=== PATIENT | female | born 1990 | race Two or more races ===

== ENCOUNTER 2024-11-09 12:51 | Outpatient (RCR) | payer MEDICAID, SELFPAY ==
--- NOTE | 2024-09-28 14:07 | XR_ITS ---
Examination: Biophysical profile, ultrasound Date and time of exam: September 28, 2024 1442 hours INDICATIONS: NST, labor evaluation today Technique: Multiple transabdominal sonographic images of the pelvis abdomen obtained. Attention is directed to the breathing movement, gross body movement, amniotic fluid volume and tone. Findings: Amniotic fluid index 14.2 cm Total biophysical profile is 8 of 8. breathing movement is 2. Gross body movement is 2. tone is 2. Qualitative amniotic fluid volume is 2 Impression: Biophysical profile is 8 of 8.
[2024-09-28 15:24] VITALS: BP 128/62; PULSE 84; RESP 16; TEMP 36.6
--- NOTE | 2024-10-05 13:24 | XR_ITS ---
Examination: Biophysical profile, ultrasound Date and time of exam: October 05, 2024 1350 hours INDICATIONS: Maternal obesity Technique: Multiple transabdominal sonographic images of the pelvis abdomen obtained. Attention is directed to the breathing movement, gross body movement, amniotic fluid volume and tone. Findings: Amniotic fluid index 13.5 cm Total biophysical profile is 8 of 8. breathing movement is 2. Gross body movement is 2. tone is 2. Qualitative amniotic fluid volume is 2 Impression: Biophysical profile is 8 of 8.
[2024-10-05 14:26] VITALS: BP 125/62; PULSE 78; RESP 16; TEMP 36.7
--- NOTE | 2024-10-18 13:05 | XR_ITS ---
Examination: Biophysical profile, ultrasound Date and time of exam: October 18, 2024 1308 hrs. Indications: Onset pelvic pain today Technique: Multiple transabdominal sonographic images of the pelvis abdomen obtained. Attention is directed to the breathing movement, gross body movement, amniotic fluid volume and tone. Findings: Amniotic fluid index 7.0 cm Total biophysical profile is 8 of 8. breathing movement is 2. Gross body movement is 2. tone is 2. Qualitative amniotic fluid volume is 2 Impression: Biophysical profile is 8 of 8.
[2024-10-18 13:30] VITALS: BP 118/63; PULSE 78; RESP 18; TEMP 36.8
--- NOTE | 2024-10-26 13:07 | XR_ITS ---
Examination: Biophysical profile, ultrasound Date and time of exam: October 26, 2024 1307 hours INDICATIONS: Pelvic pain today Technique: Multiple transabdominal sonographic images of the pelvis abdomen obtained. Attention is directed to the breathing movement, gross body movement, amniotic fluid volume and tone. Findings: Amniotic fluid index 8.9 cm Total biophysical profile is 8 of 8. breathing movement is 2. Gross body movement is 2. tone is 2. Qualitative amniotic fluid volume is 2 Impression: Biophysical profile is 8 of 8.
[2024-10-26 13:36] VITALS: BP 133/74; PULSE 87; RESP 16; TEMP 36.6
--- NOTE | 2024-11-02 14:34 | XR_ITS ---
Examination: Biophysical profile, ultrasound Date and time of exam: November 02, 2024 1443 hours INDICATIONS: Diagnosis elevated BMI, small for gestational age, pelvic pain beginning one day ago Technique: Multiple transabdominal sonographic images of the pelvis abdomen obtained. Attention is directed to the breathing movement, gross body movement, amniotic fluid volume and tone. Findings: Amniotic fluid index 14.4 cm Total biophysical profile is 8 of 8. breathing movement is 2. Gross body movement is 2. tone is 2. Qualitative amniotic fluid volume is 2 Impression: Biophysical profile is 8 of 8.
[2024-11-02 15:04] VITALS: BP 135/78; PULSE 81; RESP 18; TEMP 36.8
--- NOTE | 2024-11-09 12:57 | XR_ITS ---
Examination: Biophysical profile, ultrasound Date and time of exam: November 09, 2024 1309 hours INDICATIONS: Diagnosis maternal obesity, diagnosis small for gestational age, diagnosis pelvic pain beginning November 01, 2024 Technique: Multiple transabdominal sonographic images of the pelvis abdomen obtained. Attention is directed to the breathing movement, gross body movement, amniotic fluid volume and tone. Findings: Amniotic fluid index 8.5 cm Total biophysical profile is 8 of 8. breathing movement is 2. Gross body movement is 2. tone is 2. Qualitative amniotic fluid volume is 2 Impression: Biophysical profile is 8 of 8.
[2024-11-09 14:26] VITALS: BP 151/68; PULSE 75; RESP 18; TEMP 36.7
[2024-11-09 15:33] LABS: Basophils % (Auto) 0 % (0-2.5); Eosinophils # (Auto) 0.1 Thou/mm3 (0.0-0.5); Eosinophils % (Auto) 1 % (0-10); Hematocrit 34.1 % (36.0-46.0); Hemoglobin 11.8 g/dL (12.0-16.0); Immature Granulocytes % (Auto) 1 % (0-0); Immature Granulocytes Auto 0.04 Thou/mm3 (0.00-0.00); Lymphocytes # (Auto) 2.1 Thou/mm3 (1.0-4.8); Lymphocytes % (Auto) 24 % (10-50); Mean Corpuscular HGB Conc 34.6 g/dl (31.0-37.0); Mean Corpuscular Hemoglobin 30.3 pg (25.0-35.0); Mean Corpuscular Volume 88 fL (80-100); Monocytes # (Auto) 0.6 Thou/mm3 (0.0-0.8); Monocytes % (Auto) 7 % (0-12); Neutrophils % (Auto) 68 % (37-80); Nucleated Red Blood Cell % 0 /100 WBC (0); Platelet Count 199 Thou/mm3 (140-440); RDW Standard Deviation 41.9 fL (36.4-46.3); Red Blood Count 3.89 Miln/mm3 (4.00-5.20); White Blood Count 8.8 Thou/mm3 (3.6-11.0)
[2024-11-09 15:48] LABS: Creatinine,Random Urine 108 mg/dL (30-125); Protein Total, Random Urine 20 mg/dL (1-14)
[2024-11-09 15:58] LABS: Alanine Aminotransferase 18 U/L (10-49); Albumin, Serum 3.7 gm/dL (3.5-5.0); Albumin/Globulin Ratio 1.4 (1.2-2.2); Alkaline Phosphatase 224 U/L (46-116); Anion Gap 9 (7-16); Aspartate Amino Transferase 28 U/L (0-34); BUN/Creatinine Ratio 17 Ratio (12-20); Bilirubin,Total 0.3 mg/dL (0.3-1.2); Blood Urea Nitrogen 10 mg/dL (9-23); Calcium 8.8 mg/dL (8.3-10.6); Carbon Dioxide 22.9 mMol/L (20.0-31.0); Chloride 106 mMol/L (98-107); Creatinine (Component) 0.6 mg/dL (0.6-1.3); Globulin 2.7 gm/dL (2.3-3.5); Glucose 85 mg/dL (74-106); Osmolality,Calculated 273 (275-295); Potassium 3.7 mMol/L (3.4-5.1); Sodium 138 mMol/L (136-145); Total Protein 6.4 gm/dL (5.7-8.2); eGFR > 60 See Note
== END 2024-11-09 23:59 | disposition home or self-care (01) ==
LOC: S4S1 12:51
PROVIDERS: Obstetrics & Gynecology; PCP Advanced Practice Midwife; Referring Provider Advanced Practice Midwife; Visit Provider Advanced Practice Midwife
DX: O99.213 Obesity complicating pregnancy, third trimester (principal); E66.9 Obesity, unspecified; O09.93 Supervision of high risk pregnancy, unspecified, third trimester; Z3A.39 39 weeks gestation of pregnancy
CPT/HCPCS: 36415; 59025; 76819; 80053; 82570; 84156; 85025

== ENCOUNTER 2024-11-09 16:49 | Inpatient (IN) | payer MEDICAID, SELFPAY ==
[2024-11-09] VITALS (10 sets, daily range): BP systolic 123–153; BP diastolic 57–90; PULSE 73–96; RESP 16–18; TEMP 36.8–36.9; BMI 48.9
--- NOTE | 2024-11-09 18:35 | ESHP_ITS ---
Documentation for date of: 11/09/24 OB Labor/Induct. HPI History of Present Illness : 4 Para: 3 Term pregnancies: 2 pregnancies: 1 Living children: 2 History of Abortions: Spontaneous and Elective: 0 History of Vaginal deliveries: 3 History of sections: No History of : No Date of last menstrual period: 02/05/25 MANNIE: 11/12/24 Gestational Age (weeks): 39 Gestational Age (days): 4 Gestational age based on last menstrual period: -12 Indication for induction: medical complication History of present illness: Aubree is a 33yo with SIUP at 39w4d presenting for routine monitoring for obesity in (starting BMI 49). In triage she had recurrent mild range (rare severe range) bp's. PIH workup negative for pre-eclampsia, however elevated bp's remain and thus IOL is warranted. No hx of elevated bp's in this prior to today. She does have hx of PIH in her first for which she had IOL. No LOF, vaginal bleeding or regular/painful ctx. She feels good movement. She denies RODRIGUEZ/vision changes/RUQ pain. History of Present Adequate Care: Yes Ultrasounds: abnormal US findings Abnormal ultrasound findings: Earlier in she was found to have SGA, but MFM follow-up after showed normal growth and MFM stated no further monitoring was needed for this issue. Narrative: G1: 36wk 6lb8oz, IOL for PIH G2: 40wk 9lb5oz, retained placenta G3: 40wk 8b8oz, shortened cervix during , brief shoulder dystocia at time of delivery with no sequelae for patient or infant G4: current Labs Labs: Negative: Hepatitis B, HIV, Chlamydia and Gonorrhea and Unknown: Group Beta Strep Review of Systems Review of Systems Systems Reviewed: All systems reviewed, normal except as documented Constitutional Constitutional: Denies body ache(s), Denies chills, Denies fever(s) and Denies headache(s) ENT Ears, Nose, Mouth, and Throat: Denies headache(s) and Denies vertigo Cardiovascular Cardiovascular: Denies chest pain, Denies dyspnea and Denies syncope Respiratory Respiratory: Denies dyspnea Gastrointestinal Gastrointestinal: Denies nausea and Denies vomiting Neurologic Neurologic: Denies convulsions, Denies headache(s), Denies other visual disturbances, Denies syncope and Denies vertigo Past Medical History Family History OTHER FAMILY HX: non-contributory Surgical History SURGICAL: Negative Section Social History SOCIAL: No ETOH during . No illicit drug use or tobacco. Past Medical History Comments PMH COMMENT: Obesity (starting BMI 49) Elevated 1hr glucola, normal 3hr GTT (early HgbA1c 5.2) Meds Home Medications and Allergies Home Medications ?Medication ?Instructions ?Recorded ?Confirmed ?Type aspirin 81 mg chewable tablet 11/09/24 History vits no.130-ferrous fum tab 11/09/24 11/09/24 History 27 mg iron-folic acid 800 mcg tablet ( Vitamin) Allergies Allergy/AdvReac Type Severity Reaction Status Date / Time No Known Allergies Allergy Unknown Verified 11/09/24 18:34 OB Exam Physical Exam Narrative: General: well developed, well nourished, no acute distress, conversant Cardiac: normal heart rate Lungs: breathing without distress Abdomen: soft, gravid, non-tender, no rebound or guarding Extremities: no pain with palpation of calves Detailed Labor and Delivery Exam Dilation (cm): 1 Effacement (%): 0 station: -4 Consistency: medium Presentation: Vertex Membranes: intact monitor accelerations: 15x15 monitor decelerations: None buttermaker continuous churn variability: Moderate (11-25) Contraction frequency (min): irregular OB Results Labs Labs: Hgb 11.8 Platelets 199 serum creatinine 0.6 AST/ALT normal Urine prot:creat 0.185 OB Assessment & Plan Assessment and Plan (1) Gestational hypertension: Status: Acute Assessment and plan: Aubree is a 33yo with SIUP at 39w4d with new diagnosis of gestational hypertension. Mild range with rare severe range bp's. No sx of pre-E and PIH labs are wnl, including urine p:c. SCE: 1/thick/-4, benign exam. Reassuring assessment. care: Good care with [facility] Complications: Obesity (starting BMI 49), SGA that resolved, elevated 1hr glucola with normal 3hr GTT, Hx of PIH in 1st . Brief shoulder dystocia at time of 3rd delivery with no sequelae for patient or - that infant was 8lb8oz and she is proven to 9lb5oz. EFW by James for current gestation is 8lb0z. Plan: -Admit to L&D -Establish IV, routine labs -CEFM -Regular diet [id number], then clear liquid diet in labor -Counseled/consented re: iol and . Pharmacy states 25mcg cytotec dosing not available to administer vaginally, so will initiate cytotec 50mcg PO q4hr. In addition, sandoval cervical balloon. -GBS unknown. Since >37 weeks with no hx of GBS-related disease, no need for ppx by current ACOG guidelines -Anticipate -Safe to proceed Gayatri Kilpatrick MD (2) Obesity compl pregn//puerperp: Status: Acute (1) Gestational hypertension Qualifiers: Trimester: third trimester Qualified Code(s): O13.3 - Gestational [- induced] hypertension without significant proteinuria, third trimester
--- NOTE | 2024-11-09 19:17 | ESPR_ITS ---
Documentation for date of: 11/09/24 OB Labor Progress Note Pelvic Exam Dilation (cm): 1 Effacement (%): 0 station: -4 Contractions Contraction frequency: irregular Assessment and Plan Comments: Sandoval balloon placement note. Patient comfortable. Cat I FHRT with irregular ctx SCE: 1/thick/-4 Cook sandoval balloon placed easily, stilette removed and 40cc NS filled the intra- uterine balloon. Patient tolerated procedure well. Will proceed with cytotec 50mcg PO q4hr. Will await sandoval balloon falling out Regular dinner then [id number] CEFM Safe to proceed Gayatri Kilpatrick MD
[2024-11-09] MEDS: MISOPROSTOL 50 mCg TABLET PO ×2 (19:31→23:55)
[2024-11-09] MEDS: RINGERS LACTATED 1000 ML 1,000 ML 100 ML IV (21:50)
[2024-11-09] MEDS: Ampicillin Inj 2,000 MG in SODIUM CHLORIDE 0.9% (P) 100 ML 200 MG IV (21:52)
[2024-11-09 23:30] LABS: Syphilis Nonreactive (Nonreactive)
[2024-11-10] VITALS (38 sets, daily range): BP systolic 115–178; BP diastolic 53–102; PULSE 64–105; RESP 15–20; TEMP 36.8–36.9; O2SAT 97–98; BMI 48.9
[2024-11-10] MEDS: Ampicillin Inj 1,000 MG in SODIUM CHLORIDE 0.9% (P) 50 ML 50 MG IV ×3 (01:58→10:02)
[2024-11-10] MEDS: MISOPROSTOL 50 mCg TABLET PO ×2 (03:55→08:04)
[2024-11-10] MEDS: fentaNYL CIT INJ 50 mCg/ML AMP 2ML 100 MCG IV ×2 (08:04→10:26)
--- NOTE | 2024-11-10 08:27 | PD.LDPN ---
Documentation for date of: 11/10/24 OB Labor Progress Note Pelvic Exam Dilation (cm): 1 Effacement (%): 0 station: -4 Contractions Contraction frequency: irregular Assessment and Plan Comments: Intrapartum Note Patient doing well, feeling ctx more strongly now but declines epidural. Interested in IV pain medication. Has received 3 doses of PO cytotec. No headache, vision changes or RUQ pain. Normotensive to mild range bp's this morning. afebrile. There were 3 consecutive severe range bp's earlier this morning that MD was not notified of. Cat I FHRT overall Ctx q3-5 min SCE: 50/-4, this is a good amount of change from the very thick cervix starting IOL last night Plan: -Continue cytotec 50mcg PO Q4hr -Clear liquid diet after breakfast -CEFM -IV fentanyl per protocol prn pain -Requested that RN call me for any severe range bp's that reoccur after 20 minutes -Safe to proceed Gayatri Kilpatrick MD
[2024-11-10] MEDS: RINGERS LACTATED 1000 ML 1,000 ML 100 ML IV (10:05)
[2024-11-10] MEDS: MINERAL OIL 30 ML UDC TOP (10:14)
[2024-11-10] MEDS: OXYTOCIN in NS 20 units 20 UNIT/1,000 ML BAG 125 UNIT IV (10:26)
[2024-11-10] MEDS: TRANEXAMIC ACID 1,000 MG IVPB 1,000 MG/100 ML BAG 200 MG IV (10:31)
[2024-11-10] MEDS: BENZO/LANO/ALOE (Dermoplast) 60 GM CAN 1 SPRAY TOP (10:31)
[2024-11-10] MEDS: MISOPROSTOL 200 mCg TABLET 800 MCG PR (10:32)
[2024-11-10] MEDS: IBUPROFEN TAB 400 MG TABLET 800 MG PO ×2 (10:41→21:44)
--- NOTE | 2024-11-10 10:46 | OBDSUM_ITS ---
Vacuum Assisted Delivery Additional Comments Additional comments: Aubree is a 33yo [id number] s/p at 39w5d after undergoing IOL for gestational hypertension, delivering at 1016 on 11/10/2024. She had sandoval cervical balloon placed and received PO cytotec for induction. Induction course was uneventful until she rapidly progressed from 4 to 8cm at which point more than the usual amount of bloody show was noted (soaked onto a chucks pad). She then rapidly progressed again to C/C/0 at which point she began pushing. With good maternal pushing efforts, 's head delivered OA and restituted SEA. Left anterior shoulder delivered easily followed by posterior shoulder and corpus. had spontaneous cry and was vigorous. Apgars 9/9. There was a short cord, so infant was supported by maternal perineum while infant's nose/mouth were suctioned and infant dried/stimulated. After approximately 20-30 seconds, cord was clamped x2 and cut by Dr. Kilpatrick. At that point, was then placed to maternal chest. Cord blood collected for typing. At that point, I noted a profuse stream of vaginal bleeding that was coming from the uterus. I asked for patient to receive fentanyl 100mcg IV x1 and I performed manual extraction of the placenta to address the heavy bleeding. I was able to get a good plane between placenta and uterus, and the placenta was brought out intact with all cotyledons present. Large dark clot adhered to the periphery of the placenta consistent with partial placental abruption. Once the placenta was removed and bimanual massage was performed while IV pitocin was infusing per protocol, the fundus then firm to u-2cm, the lower uterine segment firmed and hemostasis was then fully achieved. A sweep just inside of the lower uterine segment revealed no placental fragments retained. Inspection of perineum and vagina revealed no lacerations. Patient to receive TXA 1g IV x1 (RN was waiting until IV pitocin finished infusing). I placed cytotec 800mcg OR and noted no further uterine bleeding. All counts correct x2. Mom and were doing well when I left the room. Gayatri Kilpatrick MD Data ([facility]) Data Hx Section: No : 4 Para: 3 Term: 2 : 1 Livin : 0 Delivery Data ([facility]) Labor Data ROM Date: 11/10/24 ROM Time: 10:01 Rupture Type: SROM Amniotic Fluid: Clear Delivery Data Labor Onset Stage 1 Date: 11/10/24 Labor Onset Stage 1 Time: 07:36 Labor Onset Stage 2 Date: 11/10/24 Labor Onset Stage 2 Time: 10:15 Delivery Date: 11/10/24 Delivery Time: 10:16 Placenta Delivery Date: 11/10/24 Placenta Delivery Time: 10:26 Delivered by: Gayatri Kilpatrick Delivery nurse: Magda Sal Other staff at delivery: Nursery Nurse Other staff at delivery: [facility] Nurse Other staff at delivery: Nurse Other staff at delivery: Isabella Toro Other staff at delivery: Lashawn Gallegos Other staff at delivery: Mirta hein Delivery Method Delivery: Vaginal Delivery Type: Spontaneous Anesthesia Type Primary Anesthesia: None EBL Estimated blood loss (ml): 500 Complications Complications: Hemorrhage related to partial placental abruption [facility] ([facility]) [facility] Gender: Female Infant Weight Grams: 3710 1 Minute Total: 9 5 Minute Total: 9
[2024-11-10] MEDS: DOCUSATE SOD 100 MG CAPSULE PO (21:44)
[2024-11-11] VITALS: BP 137/83; PULSE 74; RESP 19; TEMP 36.6; O2SAT 97
[2024-11-11 04:00] VITALS: BP 137/83; PULSE 85; RESP 20; TEMP 36.6; O2SAT 97
[2024-11-11 06:18] LABS: Basophils % (Auto) 0 % (0-2.5); Eosinophils # (Auto) 0.1 Thou/mm3 (0.0-0.5); Eosinophils % (Auto) 1 % (0-10); Hemoglobin 10.1 g/dL (12.0-16.0); Immature Granulocytes % (Auto) 0 % (0-0); Immature Granulocytes Auto 0.02 Thou/mm3 (0.00-0.00); Lymphocytes # (Auto) 2.5 Thou/mm3 (1.0-4.8); Lymphocytes % (Auto) 28 % (10-50); Mean Corpuscular HGB Conc 34.8 g/dl (31.0-37.0); Mean Corpuscular Hemoglobin 30.7 pg (25.0-35.0); Mean Corpuscular Volume 88 fL (80-100); Monocytes # (Auto) 0.5 Thou/mm3 (0.0-0.8); Monocytes % (Auto) 6 % (0-12); Neutrophils # (Auto) 5.8 Thou/mm3 (1.8-7.7); Neutrophils % (Auto) 66 % (37-80); Nucleated Red Blood Cell % 0 /100 WBC (0); Platelet Count 174 Thou/mm3 (140-440); RDW Standard Deviation 43.2 fL (36.4-46.3); Red Blood Count 3.29 Miln/mm3 (4.00-5.20); White Blood Count 8.9 Thou/mm3 (3.6-11.0)
[2024-11-11] MEDS: IBUPROFEN TAB 400 MG TABLET 800 MG PO (06:26)
[2024-11-11] MEDS: DOCUSATE SOD 100 MG CAPSULE PO (08:24)
[2024-11-11 08:30] VITALS: BP 119/75; PULSE 77; RESP 18; TEMP 36.6; O2SAT 99
--- NOTE | 2024-11-11 09:52 | ESDS_ITS ---
DS: Providers Provider Date of admission: 11/09/24 16:49 Primary care physician: Jon Arshad MD Admitting Provider: Gayatri Kilpatrick MD Attending Provider on Admission: Gayatri Kilpatrick MD Attending Provider on DC: Gayatri Kilpatrick MD Discharging Provider: Gayatri Kilpatrick MD DS: Diagnosis Discharge Diagnosis (1) Gestational hypertension: Status: Acute (2) Obesity compl pregn//puerperp: Status: Acute (3) hemorrhage: Status: Acute Assessment & Plan: Hgb 10.1, Rx iron (4) Placental abruption affecting delivery: Status: Acute Problem List Completed Was Problem List Reviewed/Reconciled?: Yes Summary/Hosp Course Brief History: Aubree is a 33yo with SIUP at 39w4d presenting for routine monitoring for obesity in (starting BMI 49). In triage she had recurrent mild range (rare severe range) bp's. PIH workup negative for pre-eclampsia, however elevated bp's remain and thus IOL is warranted. No hx of elevated bp's in this prior to today. She does have hx of PIH in her first for which she had IOL. No LOF, vaginal bleeding or regular/painful ctx. She feels good movement. She denies RODRIGUEZ/vision changes/RUQ pain. She is doing well on PPD1 s/p , delivering at 1016 on 11/10/2024. Delivery was complicated by PPH (EBL 500ml) related to partial placental abruption that was fully treated with manual removal of placenta. She has had an uncomplicated course, meeting all milestones and feels ready for discharge home. She is ambulating without lightheadedness, tolerating regular diet no n/v, spontaneously voiding without issue. She has no chest pain or shortness of breath. No fevers or chills. Minimal, appropriate discomfort. Vitals normal, benign exam. Hemodymanically stable with no evidence of infection. PP Hgb 10.1. Asymptomatic anemia. Status at Discharge Functional status at discharge: independent ambulation Overall status at discharge: patient is back to baseline Time Spent with Patient Time attestation: Total time spent providing and/or coordinating discharge services: Time spent: Less than 30 minutes Exam Vital Signs Temp Pulse Resp BP Pulse Ox O2 Del Method 97.9 F 77 18 119/75 99 Room Air 11/11/24 08:30 11/11/24 08:30 11/11/24 08:30 11/11/24 08:30 11/11/24 08:30 11/11/24 08:30 Narrative Exam General: well developed, well nourished, no acute distress, conversant Cardiac: normal heart rate Lungs: breathing without distress Abdomen: soft, post-gravid, non-tender, no rebound or guarding. Fundus firm at u-2cm. Extremities: no pain with palpation of calves, trace BLE edema Discharge Plan Plan Patient Disposition: HOME (Self Care) Patient condition on transfer: Stable Prescriptions/Referrals Prescriptions/Med Rec: New docusate sodium 100 mg Capsule 100 mg PO BID 15 Days Qty: 30 0RF ibuprofen 800 mg tablet 800 mg PO Q8H PRN (Reason: See Comments) 10 Days Qty: 30 0RF ferrous sulfate 325 mg (65 mg iron) tablet 325 mg PO QDAY Qty: 30 0RF Continued Vitamin 27 mg iron- 800 mcg tablet Patient Comments: take 1 tablet by mouth once daily lanolin 50 % ointment 1 applic topical TID PRN (Reason: skin irritation) 60 Days Qty: 15 0RF Discontinued docusate sodium [Colace] 100 mg capsule 100 mg PO BID Qty: 60 0RF ibuprofen 600 mg tablet 600 mg PO Q6H PRN (Reason: pain) Qty: 90 0RF aspirin 81 mg tablet,chewable Patient Comments: chew and swallow 1 tablet by mouth once daily Referrals: Jon Arshad MD [Primary Care Provider] - Patient/Caregiver Discharge Instructions Discharge Activity: activity as tolerated Other Discharge Activity Instructions:: Vaginal rest and no heavy lifting for 6 weeks. No bathing, only showers for 6 weeks. Other Discharge Diet Instructions: Regular Education Materials: After a Vaginal , After Delivery Concerns, Breast Care After Print Language: Korean Activity Restrictions/Additional Instructions: Follow up with OBGYN or CNM in 4-6 weeks, call clinic for appointment Stand Alone Forms: Pilar Award Info., Patient Portal Info Letter Discharge Order Discharge Orders: Discharge (Routine); Ordered 11/11/24 Ordered By: Gayatri Kilpatrick Planned Discharge Date 11/11/24 (1) Gestational hypertension Qualifiers: Trimester: third trimester Qualified Code(s): O13.3 - Gestational [- induced] hypertension without significant proteinuria, third trimester (3) hemorrhage Qualifiers: hemorrhage type: other immediate Qualified Code(s): O72.1 - Other immediate hemorrhage
[2024-11-11 11:12] VITALS: BP 135/87; PULSE 76; RESP 18; TEMP 36.6; O2SAT 97
== END 2024-11-11 14:50 | disposition home or self-care (01) | DRG 560 ==
LOC: S4SX 11-10 11:08 → S4NX 11-10 12:23
PROVIDERS: Admitting Provider Obstetrics & Gynecology; PCP Family Medicine; Visit Provider Obstetrics & Gynecology
DX: O13.4 Gestational [pregnancy-induced] hypertension without significant proteinuria, complicating childbirth (principal); O69.3XX0 Labor and delivery complicated by short cord, not applicable or unspecified; O45.93 Premature separation of placenta, unspecified, third trimester; O72.1 Other immediate postpartum hemorrhage; O99.214 Obesity complicating childbirth; Z37.0 Single live birth; Z3A.39 39 weeks gestation of pregnancy
CPT/HCPCS: 36415; 59409; 85025; 86780; 86850; 86900; 86901; 94762; J0290; J2590; J3010; J3490; J7050; J7120; S0191; A9270